=== PATIENT | female | born 1995 | race Caucasian/White ===

== ENCOUNTER 2017-09-29 11:31 | Day surgery (SDC) | payer OTHER, BC ==
[2017-09-29] MEDS ORDERED: PROPOFOL 20 ML (12:56)
== END 2017-09-29 15:45 | disposition home or self-care (01) ==
LOC: GIL 11:31
DX: K29.60 Other gastritis without bleeding (principal); E03.9 Hypothyroidism, unspecified
CPT/HCPCS: 43239; 84703; 88305; 88312